=== PATIENT | female | born 1995 | race Caucasian/White ===

== ENCOUNTER 2020-01-06 18:52 | Inpatient (IN) ==
[2020-01-06] MEDS ORDERED: SODIUM CHLORIDE 0.9% 1000ML 1,000 ML IV PRN (20:18)
[2020-01-06] MEDS ORDERED: DEXTROSE 50% 50 ML SYRINGE IV PRN ×2 (20:18→20:30)
[2020-01-06] MEDS ORDERED: OXYTOCIN 30 UNITS/500 ML BAG IV PRN ×2 (20:18)
[2020-01-06] MEDS ORDERED: DEXTROSE 5% 1,000 ML IV PRN (20:18)
--- NOTE | 2020-01-06 20:26 | Labor Progress Brief Note ---
Date of Service January 06, 2020 Subjective Patient presented for placement of palm bulb for planned IOL in AM. She is a 24yo morbidly obese with gestational diabetes on insulin and limited compliance with diabetes care, as well as EFW >98%. She has no complaints on presentation. Assessment & Plan (1) Insulin controlled gestational diabetes mellitus (GDM) during : Hourly FSBG and insulin / glucose protocol initiated. (2) Obesity affecting , antepartum: Patient with EFW >98% and therefore scheduled for IOL tomorrow. Given ROM at this time will admit the patient now, and start pitocin. Physical Exam Physical Exam: T Cat 1 [place] quiet Cvx 1//high/post/soft Palm introduced through the os with some difficulty due to patient intolerance of exam / movement away from examiner and a very posterior cervix. Palm was advanced forward off of stylet such that stylet never passed the internal os. Insufflation of palm bulb proceeded with sterile water. After approx 15cc of water was in palm balloon, a pop sensation was appreciated and clear fluid containing vernix began to pour from the palm. ROM was diagnosed. Results & Data Vital Signs (Past 12 Hours) Vital Signs Temp Pulse Resp BP 01/06/20 19:20 115 H 138/93 01/06/20 19:08 109 H 146/87 H 01/06/20 19:05 98.2 F 108 H 18 146/87 H Coding Level of Care Code None Diagnoses Insulin controlled gestational diabetes mellitus (GDM) during O24.414 Obesity affecting , antepartum O99.210
[2020-01-06] MEDS ORDERED: GLUCOSE 40% GEL 15 GM TUBE PO PRN (20:30)
[2020-01-06] MEDS ORDERED: GLUCOSE 10 TABS/TUBE PO PRN (20:30)
[2020-01-06] MEDS ORDERED: CARBOHYDRATES FOR HYPOGLYCEMIA PO PRN (20:30)
[2020-01-06] MEDS ORDERED: GLUCAGON FOR INJ 1 MG VIAL IM PRN (20:30)
[2020-01-06 20:40] LABS: Hematocrit (blood only) 31.9 % (37-47); Hemoglobin 10.2 g/dL (12.0-16.0); Mean Corpuscular Hemoglobin 25.3 pg (25-34); Mean Corpuscular Volume 79.2 fL (80-100); Nucleated RBC # (auto) 0.02 K/uL (0-0); Nucleated RBC % (auto) 0.2 %; Platelet Count 229 K/uL (130-400); RDW Coefficient of Variation 17.1 % (11.5-14.5); RDW Standard Deviation 48.7 fL (36.4-46.3); Red Blood Count 4.03 M/uL (4.2-5.4); White Blood Count 10.15 K/uL (4.8-10.8)
[2020-01-06] MEDS ORDERED: CALCIUM CARBONATE 500 MG CHEWABLE TAB PO PRN (21:01)
[2020-01-06] MEDS ORDERED: CALCIUM CARBONATE 500 MG CHEWABLE TAB ONE (21:27)
[2020-01-06] MEDS: LACTATED RINGER'S 1,000 ML IV PRN (21:43)
[2020-01-06] MEDS: INSULIN REGULAR 250 UNITS in SODIUM CHLORIDE 0.9% 247.5 ML IV PRN ×2 (22:24→23:02)
[2020-01-07] MEDS: INSULIN REGULAR 250 UNITS in SODIUM CHLORIDE 0.9% 247.5 ML IV PRN ×5 (00:05→05:06)
[2020-01-07] MEDS ORDERED: ePHEDrine sulfate 50 MG/ML AMP ONE (02:37)
[2020-01-07] MEDS ORDERED: fentaNYL citrate 100 MCG/2 ML VIAL ONE (02:38)
[2020-01-07] MEDS ORDERED: BUPIVACAINE 0.25% 30 ML VIAL ONE (02:38)
[2020-01-07] MEDS ORDERED: fentaNYL 2MCG/ML ROPIV 1.25MG/ML 100 ML BAG EPI ONE (02:38)
--- NOTE | 2020-01-07 03:06 | Anesthesiology Consultation ---
Date of Service January 07, 2020 Assessment & Plan Chart Review Chart Review: Acceptable Risk for Labor Epidural Consults Requested none ASA ASA3 Proposed Anesthesia Anesthesia Type: Labor Epidural Risk / Benefits Reviewed With: PT / POA / Parent / Guardian, Accepts Plan and Informed Consent Obtained History Height/Weight Height: 5 ft 3 in Weight: 101.605 kg Allergies Allergy/AdvReac Type Severity Reaction Status Date / Time No Known Allergies Allergy Verified 01/04/20 08:32 Medications Home Medications Medication Instructions Recorded Confirmed Last Taken insulin aspart U-100 62 unit SUBCUT TID 01/06/20 01/06/20 Unknown insulin detemir U-100 [Levemir 62 unit SUBCUT HS 01/06/20 01/06/20 Unknown FlexTouch U-100 Insuln] vit no.[id number] 1 tab PO DAILY 01/06/20 01/06/20 Unknown [ Vitamin] Active Medications Generic Name Dose Route Start Last Admin Trade Name Freq PRN Reason Stop Dose Admin Lactated Ringer's 1,000 mls @ 125 mls/hr 01/06/20 20:18 01/07/20 02:33 Lr IV 01/08/20 20:17 999 mls/hr .Q8H PRN Infusion L&D Protocol Protocol Sodium Chloride 1,000 mls @ 100 mls/hr 01/06/20 20:18 01/07/20 02:09 Nss 1000ml IV 02/05/20 20:17 0 mls/hr .Q10H PRN Infusion BSG 141 mg/dL or above Protocol Insulin Human Regular 250 250 mls @ 0 mls/hr 01/06/20 20:18 01/07/20 02:09 units/ Sodium Chloride IV 02/05/20 20:17 1.5 units/hr Q24H PRN 1.5 mls/hr BSG 80mg/dL or above Administration Protocol Per Protocol Dextrose 1,000 mls @ 100 mls/hr 01/06/20 20:18 01/07/20 02:09 D5w IV 02/05/20 20:17 50 mls/hr .Q10H PRN Infusion BSG 180 or below Protocol Oxytocin 30 units in 500 mls @ 7 mls/hr 01/06/20 20:18 01/06/20 23:45 Pitocin IV 04/28/20 20:17 0.42 units/hr .Q24H PRN 7 mls/hr Labor Induction/Augmentation Titration Protocol 0.42 UNITS/HR NPO Date Last Intake of Fluids: 01/06/20 Time Last Intake of Fluids: 23:59 Date Last Intake of Solids: 01/06/20 Time Last Intake of Solids: 16:00 Past Medical History Medical History Depression Gestational diabetes On insulin LGSIL on Pap smear of cervix Repeat pap smear 6 weeks pp depression After first child; denied needing medication Exercise / Class Metabolic Activity II 4-5 Yardwork/Stairs/Walk up hill Past Family History Family History Other No significant family history Past Surgical History none Past Anesthesia History No Hx of Anesthesia Complications and No Family Hx of Anesthesia Complications History of PONV No Hx of PONV and No Hx of Motion Sickness Social History Smoking Status: Never smoker Do You Dip or Chew Tobacco: No Hx Alcohol Use: No Hx Substance Use: No substance use type: does not use Physical Exam Vital Signs Last Vital Signs Temp 36.8 C 01/07/20 00:58 Pulse 103 H 01/07/20 02:01 Resp 18 01/07/20 00:58 BP 128/63 01/07/20 02:01 Constitutional + obese ENMT Mouth: no TMJ abnormality Thyromental Distance: > or= 3.5 Finger Breadths Mallampati Class: III Neck normal visual inspection and trachea midline; neck extension not limited Respiratory normal respiratory effort Auscultation: lungs clear to auscultation bilaterally Cardiovascular Rate/Rhythm: regular rate and regular rhythm Heart Sounds: no murmur Musculoskeletal Spine: normal cervical ROM Extremities: full ROM of extremities Neurologic moves all extremities Psychiatric Orientation: alert and oriented x 3 Testing Laboratory Results 01/06/20 20:30 01/07/20 01/07/20 01/07/20 02:08 01:01 00:04 POC Glucose 140 H 157 H 121 H 01/06/20 01/06/20 01/06/20 22:59 22:14 21:52 POC Glucose 106 H 81 67 L*
[2020-01-07] MEDS: LACTATED RINGER'S 1,000 ML IV PRN ×2 (03:10→05:08)
[2020-01-07] MEDS ORDERED: NALBUPHINE HCL INJ 10 MG/ML AMP IV PRN (03:33)
[2020-01-07] MEDS ORDERED: METOCLOPRAMIDE HCL 20 MG in SODIUM CHLORIDE 0.9% 50 ML IV PRN (03:33)
[2020-01-07] MEDS ORDERED: ePHEDrine sulfate 50 MG/ML AMP IV PRN (03:33)
[2020-01-07] MEDS ORDERED: NALOXONE HCL 1 MG in SODIUM CHLORIDE 0.9% 1000ML 1,000 ML IV PRN (03:33)
[2020-01-07] MEDS ORDERED: NALOXONE HCL 0.4 MG/1 ML VIAL/CARP IV PRN (03:33)
[2020-01-07] MEDS ORDERED: fentaNYL 2MCG/ML ROPIV 1.25MG/ML 100 ML BAG EPI PRN (03:33)
[2020-01-07] MEDS ORDERED: PROMETHAZINE HCL 25 MG in SODIUM CHLORIDE 0.9% 50 ML IV PRN (03:33)
[2020-01-07] MEDS ORDERED: DiphenhydrAMINE HCL 50 MG/ML VIAL IV PRN (03:33)
[2020-01-07] MEDS ORDERED: ONDANSETRON INJ 2 MG/ML 2 ML VIAL IV PRN (03:33)
[2020-01-07] MEDS ORDERED: TERBUTALINE SULFATE 1 MG/ML VIAL ONE (04:11)
[2020-01-07] MEDS ORDERED: TERBUTALINE SULFATE 1 MG/ML VIAL SQ ONE (04:52)
[2020-01-07 07:55] LABS: Base Excess Cord Arterial Bld -6.2 mEq/L (-9-1.8); CO2 Cord Arterial Blood 80 mmHg (39.1-73.5); HCO3 Cord Arterial Blood 25 mmol/L (19.7-28.5); PO2 Cord Arterial Blood 16 mmHg (4.1-31.7); pH Cord Arterial Blood 7.12 (7.1-7.38)
--- NOTE | 2020-01-07 07:58 | Delivery Summary ---
Vaginal Delivery Summary Date of Service January 07, 2020 Vaginal Delivery Summary DIAGNOSES: 1. Basilio intrauterine at 39w1d gestation. 2. Induction of labor, medically indicated for A2GDM, LGA, Morbid maternal obesity. 3. Group B Streptococcus Neg. PROCEDURE: Spontaneous vaginal delivery with 5+ minute shoulder dystocia and repair of midline episiotomy equal to 2nd degree laceration. SURGEON: Magda Priest MD. TENANT COORDINATOR: Yadira Aggarwal MD. ESTIMATED BLOOD LOSS: 300 mL. COMPLICATIONS: None. PLACENTA: Spontaneous and intact with a 3-vessel cord. DISPOSITION: Stable to labor and delivery. DESCRIPTION: The patient pushed well and brought the head to in DOA position. There was noted to be a lot of soft tissue around the baby's face which had to be manually reduced, and a significantly prolonged phase with "turtle sign." The nursing staff was alerted to concern for a shoulder dystocia and a stool and additional personnel were brought in. Once the head and face were completely free of soft tissue, a definite dystocia was encountered. A tight nuchal cord was also noted. Initial attempt to reduce this cord was unsuccessful. Gentle downward traction on the head was used with a maternal pushing effort to attempt to deliver. This was unsuccessful, however after this attempt it was possible to reduce the nuchal cord which was done. The patient had been placed in Brennen position and suprapubic pressure was being applied to the posterior aspect of the anterior (left) shoulder. Absolutely no fundal pressure was applied. This maneuver was not successful. Maneuvers were tried in succession including Wood's Screw, Ro, attempt to sweep Posterior Arm, attempt to fracture the clavicle, attempt to hook the posterior axilla. None of these maneuvers resulted in any movement. We stopped pushing and I picked up the bandage scissors to make an episiotomy, however decided that this was not likely to be helpful as I was able to place my arm into the posterior aspect of the uterus all the way to the hand without difficulty; the soft tissue was neither the obstruction to delivery nor preventing me from performing maneuvers fully. We therefore returned to the top of the list of maneuvers in order, again without success. We were preparing to move the patient to knee-chest for a Prudence maneuver when Dr. Aggarwal was able to come to the room; he was arriving in the building for a planned this morning on another patient. He quickly gowned and gloved. With the patient still in dorsal lithotomy position he was able to attempt maneuvers in order. When he reached the posterior arm maneuvers he requested an episiotomy which I cut. The posterior arm was then able to be successfully delivered. This resulted in ability to deliver the baby but did still require significant matern al and provider effort to deliver the anterior shoulder, including Brennen and suprapubic pressure again. Then the trunk followed with a strong maternal effort. The right shoulder was anterior. The cord was doubly clamped by the MD and cut, and the infant was taken directly to the warmer for the awaiting team of nurses, bobbin painter, and the anesthesiologist was on his way. The placenta delivered spontaneously and was noted to be intact and with a 3VC. The cervix, vagina and perineum were examined and were found to have only the midline episiotomy which was repaired in the usual manner with vicryl suture. The fundus was firm and lochia minimal immediately after delivery. See pediatric documentation for description of resuscitation efforts, Apgars, weights. Additionally note that cord blood was collected by this physician on the delivery procedure table, and sent promptly for blood gas evaluation.
[2020-01-07 08:02] LABS: Oxygen Sat Cord Arterial Blood < 60.0 % (<60)
[2020-01-07] MEDS ORDERED: IBUPROFEN 600 MG TAB PO ONE (10:02)
[2020-01-07] MEDS ORDERED: BENZOCAINE 20% AER SPR 82.5 GM CAN EXT PRN (10:08)
[2020-01-07] MEDS ORDERED: ACETAMINOPHEN 325 MG TAB PO PRN (10:08)
[2020-01-07] MEDS ORDERED: SUPERCREAM 0.870% 15 GM JAR EXT PRN (10:08)
[2020-01-07] MEDS ORDERED: HYDROCORTISONE ACETATE 25 MG SUPP PR PRN (10:08)
--- NOTE | 2020-01-07 10:25 | Anesthesiology Progress Note ---
Date of Service January 07, 2020 Anesthesia Post Procedure Vital Signs Vital Signs: Temp Pulse Resp BP Pulse Ox 01/07/20 09:55 136 H 134/77 01/07/20 09:40 123 H 138/83 01/07/20 09:25 129 H 141/82 H 01/07/20 09:10 121 H 151/86 H 01/07/20 08:55 120 H 144/84 H 01/07/20 08:40 123 H 137/78 01/07/20 08:25 121 H 145/86 H 01/07/20 08:10 122 H 152/87 H 01/07/20 07:55 123 H 142/78 H 01/07/20 07:47 137 H 153/87 H 01/07/20 07:40 127 H 152/75 H 01/07/20 07:25 151 H 145/91 H 01/07/20 07:14 165 H 95 01/07/20 07:12 179 H 93 01/07/20 07:11 153 H 140/85 01/07/20 07:09 158 H 94 01/07/20 07:06 142 H 94 01/07/20 07:04 131 H 92 01/07/20 07:00 37.4 C 18 01/07/20 06:59 134 H 93 01/07/20 06:55 131/69 01/07/20 06:54 139 H 92 01/07/20 06:49 129 H 93 01/07/20 06:48 140 H 93 01/07/20 06:44 139 H 97 01/07/20 06:42 139 H 92 01/07/20 06:39 136 H 95 01/07/20 06:37 152 H 93 01/07/20 06:34 129 H 95 01/07/20 06:31 159 H 94 01/07/20 06:30 18 01/07/20 06:29 145 H 95 01/07/20 06:25 131 H 143/88 H 90 01/07/20 06:24 145 H 98 01/07/20 06:20 141 H 92 01/07/20 06:19 141 H 94 01/07/20 06:14 129 H 97 01/07/20 06:11 115 H 143/92 H 01/07/20 06:09 118 H 98 01/07/20 06:04 110 H 98 01/07/20 06:03 116 H 135/88 01/07/20 06:00 18 01/07/20 05:59 109 H 97 01/07/20 05:54 110 H 97 01/07/20 05:49 116 H 97 01/07/20 05:44 118 H 98 01/07/20 05:39 112 H 98 01/07/20 05:34 110 H 96 01/07/20 05:30 18 01/07/20 05:29 115 H 96 01/07/20 05:26 111 H 145/88 H 01/07/20 05:24 111 H 96 01/07/20 05:19 112 H 95 01/07/20 05:14 117 H 97 01/07/20 05:11 113 H 145/88 H 01/07/20 05:09 119 H 97 01/07/20 05:04 122 H 95 01/07/20 05:02 36.8 C 01/07/20 05:00 18 01/07/20 04:59 121 H 96 01/07/20 04:57 107 H 146/89 H 01/07/20 04:54 118 H 95 01/07/20 04:49 114 H 95 01/07/20 04:44 114 H 97 01/07/20 04:41 111 H 144/85 H 01/07/20 04:39 118 H 99 01/07/20 04:34 120 H 98 01/07/20 04:30 18 01/07/20 04:29 116 H 97 01/07/20 04:25 120 H 158/86 H 01/07/20 04:24 115 H 98 01/07/20 04:19 103 H 99 01/07/20 04:14 97 H 98 01/07/20 04:10 100 H 152/89 H 01/07/20 04:09 100 H 100 01/07/20 04:05 99 H 143/99 H 01/07/20 04:04 101 H 100 01/07/20 04:00 100 H 18 142/87 H 01/07/20 03:59 101 H 100 01/07/20 03:55 101 H 142/87 H 01/07/20 03:54 108 H 100 01/07/20 03:50 99 H 158/100 H 01/07/20 03:49 101 H 100 01/07/20 03:44 104 H 139/80 100 01/07/20 03:41 98 H 133/74 01/07/20 03:39 99 H 129/70 99 01/07/20 03:38 18 01/07/20 03:37 95 H 130/71 01/07/20 03:35 97 H 139/86 94 01/07/20 03:34 99 H 95 01/07/20 03:31 109 H 152/90 H 01/07/20 03:29 101 H 142/84 H 96 01/07/20 03:27 100 H 94 01/07/20 03:25 107 H 130/78 01/07/20 03:24 108 H 96 01/07/20 03:19 114 H 95 01/07/20 03:14 111 H 96 01/07/20 03:09 111 H 97 01/07/20 03:06 112 H 127/80 01/07/20 03:04 116 H 97 01/07/20 02:01 103 H 128/63 01/07/20 01:03 112 H 117/67 01/07/20 00:58 36.8 C 18 01/07/20 00:02 104 H 129/73 01/06/20 22:57 36.9 C 01/06/20 22:56 112 H 137/83 01/06/20 21:47 104 H 136/78 01/06/20 21:01 36.9 C 01/06/20 19:20 115 H 138/93 01/06/20 19:08 109 H 146/87 H 01/06/20 19:05 36.8 C 108 H 18 146/87 H Pain Intensity Bilateral Abdomen: Pain Intensity: 3 Notes Mental Status: alert / awake / arousable Nausea / Vomiting: adequately controlled Pain: adequately controlled Airway Patency, RR, SpO2: stable & adequate BP & HR: stable & adequate Hydration State: stable & adequate Neuraxial Anesthesia: was administered and sensory block is resolving Anesthetic Complications: no major complications apparent and Pt Satisfied with anesthetic care
[2020-01-07] MEDS: ACETAMINOPHEN W/CODEINE #3 1 TAB PO PRN (17:09)
[2020-01-07] MEDS: IBUPROFEN 600 MG TAB PO PRN ×2 (17:10→23:26)
[2020-01-07] MEDS: DOCUSATE SODIUM 100 MG CAP PO SCH (20:08)
--- NOTE | 2020-01-08 07:36 | Obstetrical Progress Note ---
Date of Service January 08, 2020 Assessment & Plan (1) Insulin controlled gestational diabetes mellitus (GDM) during : - baby transported to [facility] yesterday - patient desires d.c - will hold insulin and check at 6 weeks - d/c instructions given - f/u in 6 weeks Subjective Ambulation: ambulating normally Diet Tolerance:: regular diet Physical Exam Constitutional WD/WN, vitals as above Gastrointestinal (Abdomen) Fundus firm below umbilicus Musculoskeletal No deep calf tenderness Results & Data Vital Signs (Past 12 Hours) Vital Signs Temp Pulse Pulse Resp BP Pulse Ox 01/08/20 03:20 98.1 F 80 16 127/76 98 01/07/20 23:25 98.2 F 98 H 18 134/85 97 01/07/20 19:50 98.1 F 94 H 18 139/75 98
[2020-01-08] MEDS ORDERED: PRENATAL VITAMIN 1 TAB PO SCH (08:00)
[2020-01-08] MEDS: DOCUSATE SODIUM 100 MG CAP PO SCH (08:24)
[2020-01-08] MEDS: IBUPROFEN 600 MG TAB PO PRN (08:26)
[2020-01-08] MEDS: ACETAMINOPHEN W/CODEINE #3 1 TAB PO PRN (08:26)
== END 2020-01-08 13:10 | disposition home or self-care (01) | DRG 807 ==
LOC: OPB 18:52 → 4S1 18:53 → 4S2 01-07 12:56

== ENCOUNTER 2025-05-19 03:30 | Observation (INO) ==
[2025-05-19] MEDS: ONDANSETRON INJ 2 MG/ML 2 ML VIAL IV STA (03:51)
[2025-05-19] MEDS: SODIUM CHLORIDE 0.9% 1,000 ML IV ONE (03:51)
[2025-05-19] MEDS: KETOROLAC 30 MG/ML VIAL IV STA (03:53)
[2025-05-19 03:54] LABS: Appearance Urine Clear (Clear); Glucose Urine UA Negative (Negative)
[2025-05-19 03:58] LABS: Hematocrit (blood only) 34.6 % (37.0-47.0); Hemoglobin 10.9 g/dl (12.0-16.0); Immature Granulocytes # (auto) 0.05 K/uL (0.01-0.20); Immature Granulocytes % (auto) 0.5 %; Mean Corpuscular Hemoglobin 25.3 pg (25.0-34.0); Mean Corpuscular Volume 80.3 fL (80.0-100.0); Platelet Count 296 K/uL (130-400); RDW Standard Deviation 64.1 fL (36.4-46.3); Red Blood Count 4.31 M/uL (4.20-5.40); White Blood Count 9.53 K/ul (4.8-10.8)
[2025-05-19 04:14] LABS: Alanine Aminotransferase 95.0 U/L (7-52); Albumin Globulin Ratio 1.4 (0.9-2); Alkaline Phosphatase 87.0 U/L (34-104); Anion Gap 4.0 (3-11); Bilirubin,Total 0.3 mg/dl (0.2-1.0); Blood Urea Nitrogen 13.0 mg/dl (6-23); Calcium 8.8 mg/dl (8.6-10.3); Carbon Dioxide 29.0 mmol/L (21-32); Chloride 106.0 mmol/L (98-107); Creatinine Clr Calc Pharmacy 139.2 ml/min; Globulin 2.9 gm/dl (2.5-4.0); Glucose 162.0 mg/dl (70-99(Fasting)); Lipase 44.0 U/L (11-82); Potassium 4.2 mmol/L (3.5-5.1); Sodium 139.0 mmol/L (136-145); Total Protein 6.9 gm/dl (6.0-8.3)
[2025-05-19 04:16] LABS: Anisocytosis Present; Polychromasia 1+
[2025-05-19 04:17] LABS: Pregnancy Test, Serum Negative (Negative)
--- NOTE | 2025-05-19 04:52 | CT Scan Report ---
EXAM: CT abd pelvis wo con CLINICAL HISTORY: right flank pain TECHNIQUE: Contiguous axial images were obtained from the level of the diaphragm to the pubic symphysis without intravenous or oral contrast. Coronal and sagittal reconstructions were likewise performed and indicated to increase the sensitivity for detecting clinically relevant pathology. CT scan was performed according to ALARA (as low as reasonable achievable). COMPARISON: None FINDINGS: The visualized lung bases are clear. Evaluation of the abdominal and pelvic visceral organs is limited without intravenous contrast. The unenhanced spleen, pancreas, and adrenal glands are grossly unremarkable. Liver is enlarged in size measuring approximately 21 cm in midclavicular line with diffusely decreased attenuation The gallbladder is well distended with dependent faint radiodensity within. The kidneys are normal in size and attenuation without obvious calcification. There is no hydronephrosis or perinephric stranding. The ureters are normal in caliber. No adenopathy or fluid collections are seen. Moderate fecal content is seen in large bowel loops. No evidence of focal or diffuse bowel wall thickening or evidence of bowel obstruction is seen. The appendix is visualized in the right lower quadrant and appears within normal limits. The aorta is normal in caliber. The urinary bladder is undistended. Uterus is bulky-advised ultrasound correlation. No aggressive appearing osseous lesions are identified. IMPRESSION: Uncomplicated cholelithiasis. Hepatomegaly with diffuse hepatic steatosis. Uterus is bulky-advised ultrasound correlation. No acute intra-abdominal abnormality detected. Electronically signed by Harjinder Oswald 05-19-2025 04:52 AM
--- NOTE | 2025-05-19 06:29 | Emergency Department Note ---
History of Present Illness General Chief complaint: Abdominal Pain Stated complaint: Lower Abdominal Pain, Dizziness Time Seen by Provider: 05/19/25 03:32 History of Present Illness Maximum Pain Intensity: 10 This is a 30-year-old female presenting to the emergency department for evaluation of right sided abdominal pain. The patient essentially awoke with pain around 2:30 AM. She does have a history of kidney stones, but this is not identical to those. She has not had fevers or chills. She is without nausea or vomiting. Patient arrives via EMS and did not receive anything prehospital for symptoms. She did have tubal ligation performed with a few months ago. She rates her overall discomfort a 06/21. Home Medications Medication Instructions Recorded Confirmed Type PNV no.[id number] PO 10/24/24 11/29/24 History [ Gummies] escitalopram oxalate [Lexapro] PO 10/24/24 11/29/24 History lamotrigine PO 10/24/24 11/29/24 History quetiapine [Seroquel] PO 10/24/24 11/29/24 History blood-glucose sensor (FreeStyle #2 ea 10/26/24 11/29/24 Rx Ace 3 Plus Sensor device) insulin NPH isoph U-100 human 100 10 unit (0.1 mL) subcut .at bed 10/26/24 11/29/24 Rx unit/mL (3 mL) subcutaneous pen time #15 mL (Novolin N FlexPen) insulin aspart U-100 100 unit/mL 5 unit (0.05 mL) subcut TID #15 mL 10/26/24 11/29/24 Rx (3 mL) subcutaneous pen (Novolog FlexPen U-100 Insulin aspart) pen needle, diabetic 32 gauge x #150 ea 10/26/24 11/29/24 Rx 5/32" (BD Ultra-Fine Chrystal Pen Needle) ondansetron HCl 4 mg tablet 4 mg PO Q8H PRN nausea and 10/31/24 11/29/24 Rx vomiting #20 tabs Allergies Allergy/AdvReac Type Severity Reaction Status Date / Time No Known Allergies Allergy Verified 11/29/24 10:39 Past Med/Surg History Problem List (Updated 05/19/25 @ 07:14 by Jeremi Booker PA-C) Acute cholecystitis (Acute) Gallstones (Acute) Abdominal pain (Acute) Encounter for anatomic survey Early stage of Diabetes mellitus affecting , antepartum Encounter for supervision of normal in multigravida Medical History Insulin controlled gestational diabetes mellitus (GDM) during LGSIL on Pap smear of cervix High 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 Depression LGSIL on Pap smear of cervix Repeat pap smear 6 weeks pp depression After first child; denied needing medication Gestational diabetes On insulin Depression Surgical History Status post surgery labiaplasty [place] teeth extracted Family History Other Adopted Social History Smoking Status: Current every day smoker Tobacco Type: Cigarettes Second Hand Exposure: No; Do You Dip or Chew Tobacco: No; Hx Alcohol Use: No Hx Substance Use: No Preferred Language: Malagasy Communication Ability: Effective Librarian Head Required: No Beliefs That Will Affect Care: None marital status: marital status details: Roque Ibrahim (29) [phone] Current Living Situation: Spouse and Family Current Living Situation Comment: Lives with , children,dog, cat-fob changing litter current occupational status: unemployed current occupation: homemaker Feels Safe at Home: Yes Assistive Devices: None Review of Systems A total of 10 systems reviewed and were otherwise negative Physical Exam Vital Signs Vital Signs - 24 hr 05/19/25 03:36 05/19/25 03:37 05/19/25 04:00 Temperature 36.9 C Temperature Source Oral Pulse Rate 85 86 83 Pulse Rate from SpO2 Sensor 84 Pulse Rhythm Regular Pulse Strength Normal Respiratory Rate 18 18 Respiratory Effort / Characteristics Non-Labored Spontaneous Respiratory Depth Normal Respiratory Pattern Regular Blood Pressure 130/81 127/76 Blood Pressure Mean 97 90 Blood Pressure Position Lying Pulse Oximetry 99 96 Oxygen Delivery Method Room Air Room Air Sepsis Recent Fever Within 48 Hours No Sepsis New/Unexplained Change in Mental Status N/A Sepsis Action Taken by Nursing No Action Required 05/19/25 04:15 05/19/25 04:30 05/19/25 05:27 Temperature Temperature Source Pulse Rate 84 83 74 Pulse Rate from SpO2 Sensor 84 85 76 Pulse Rhythm Pulse Strength Respiratory Rate 18 22 Respiratory Effort / Characteristics Respiratory Depth Respiratory Pattern Blood Pressure 124/76 119/72 150/86 H Blood Pressure Mean 92 87 107 Blood Pressure Position Pulse Oximetry 96 95 96 Oxygen Delivery Method Room Air Room Air Room Air Sepsis Recent Fever Within 48 Hours Sepsis New/Unexplained Change in Mental Status Sepsis Action Taken by Nursing 05/19/25 05:33 05/19/25 05:42 05/19/25 05:51 Temperature Temperature Source Pulse Rate 68 72 80 Pulse Rate from SpO2 Sensor 69 75 81 Pulse Rhythm Pulse Strength Respiratory Rate Respiratory Effort / Characteristics Respiratory Depth Respiratory Pattern Blood Pressure 140/80 Blood Pressure Mean 100 Blood Pressure Position Pulse Oximetry 94 94 96 Oxygen Delivery Method Room Air Room Air Room Air Sepsis Recent Fever Within 48 Hours Sepsis New/Unexplained Change in Mental Status Sepsis Action Taken by Nursing 05/19/25 06:00 05/19/25 06:30 Temperature Temperature Source Pulse Rate 75 73 Pulse Rate from SpO2 Sensor 73 68 Pulse Rhythm Pulse Strength Respiratory Rate 15 18 Respiratory Effort / Characteristics Respiratory Depth Respiratory Pattern Blood Pressure 153/90 H 151/87 H Blood Pressure Mean 111 108 Blood Pressure Position Pulse Oximetry 93 95 Oxygen Delivery Method Room Air Room Air Sepsis Recent Fever Within 48 Hours Sepsis New/Unexplained Change in Mental Status Sepsis Action Taken by Nursing VITALS: Vitals are noted on the nurse's note and reviewed by myself. Vital signs stable. GENERAL: Well-developed, well-nourished, white female, who is in no acute distress and resting comfortably. Patient is cooperative with the examination. HEAD: Normocephalic atraumatic. NECK: Supple without nuchal rigidity. No lymphadenopathy. No thyromegaly. Cervical spine is nontender. HEART: Regular rate and rhythm without murmurs gallops or rubs. LUNGS: Clear to auscultation bilaterally without wheezes, rales or rhonchi. No retractions or accessory muscle use. ABDOMEN: Positive normal bowel sounds x 4. Soft, with right sided and periumbilical tenderness on palpation. No CVA tenderness. MUSCULOSKELETAL: No muscle atrophy, erythema, or edema noted. Full range of motion in all extremities. Course Administered Medications Discontinued Medications Sodium Chloride (Nss) 1,000 mls @ 999 mls/hr IV .Q1H1M ONE Stop: 05/19/25 04:37 Last Infusion: 05/19/25 04:55 Dose: Infused Documented By: Admin: 05/19/25 03:51 Dose: 999 mls/hr Documented By: BEAU Ketorolac Tromethamine (Ketorolac 30 Mg/Ml Vial) 30 mg IV NOW STA Stop: 05/19/25 03:38 Last Admin: 05/19/25 03:53 Dose: 30 mg Documented By: BEAU Ondansetron HCl (Ondansetron Inj 2 Mg/Ml 2 Ml Vial) 4 mg IV NOW STA Stop: 05/19/25 03:38 Last Admin: 05/19/25 03:51 Dose: 4 mg Documented By: BEAU Medical Decision Making Differential Diagnosis differential diagnosis: Etiologies such as biliary colic, cholecystitis, hepatitis, pancreatitis, cardiac disease, pancreatitis, gastritis, peptic ulcer disease, appendicitis, cystitis, diverticulitis, mesenteric ischemia, inflammatory bowel disease, ileus, bowel obstruction, testicular/adnexal torsion, aortic pathology, shingles, as well as others were considered Laboratory Data 05/19/25 03:41 05/19/25 03:41 Lab Results 05/19/25 Range/Units 03:41 WBC 9.53 (4.8-10.8) K/ul RBC 4.31 (4.20-5.40) M/uL Hgb 10.9 L (12.0-16.0) g/dl Hct 34.6 L (37.0-47.0) % MCV 80.3 (80.0-100.0) fL MCH 25.3 (25.0-34.0) pg MCHC 31.5 L (32.0-36.0) g/dL RDW Std Deviation 64.1 H (36.4-46.3) fL RDW Coeff of Herbert 22.5 H (11.5-14.5) % Plt Count 296 (130-400) K/uL MPV 9.4 (9.4-12.4) fL Immature Gran % (Auto) 0.5 % Neut % (Auto) 64.9 % Lymph % (Auto) 26.7 % Candler % (Auto) 5.7 % Eos % (Auto) 1.8 % Baso % (Auto) 0.4 % Neut # (Auto) 6.19 (1.40-6.50) K/uL Lymph # (Auto) 2.54 (1.20-3.40) K/uL Candler # (Auto) 0.54 (0.11-0.59) K/uL Eos # (Auto) 0.17 (0.00-0.50) K/uL Baso # (Auto) 0.04 (0.00-0.20) K/uL Immature Gran # (Auto) 0.05 (0.01-0.20) K/uL Polychromasia 1+ Anisocytosis Present Sodium 139 (136-145) mmol/L Potassium 4.2 (3.5-5.1) mmol/L Chloride 106 (98-107) mmol/L Carbon Dioxide 29 (21-32) mmol/L Anion Gap 4 (3-11) BUN 13 (6-23) mg/dl Creatinine 0.62 (0.6-1.2) mg/dl Est Cr Clr Drug Dosing 139.2 ml/min eGFR 124.32 BUN/Creatinine Ratio 21.0 H (10-20) Glucose 162 H (70-99(Fasting)) mg/dl Calcium 8.8 (8.6-10.3) mg/dl Total Bilirubin 0.3 (0.2-1.0) mg/dl AST 126 H (13-39) U/L ALT 95 H (7-52) U/L Alkaline Phosphatase 87 (34-104) U/L Total Protein 6.9 (6.0-8.3) gm/dl Albumin 4.0 (3.4-5.0) gm/dl Globulin 2.9 (2.5-4.0) gm/dl Albumin/Globulin Ratio 1.4 (0.9-2) Lipase 44 (11-82) U/L HCG, Qual Negative (Negative) Urine Color Yellow Urine Appearance Clear (Clear) Urine pH 6.0 (4.5-7.5) Ur Specific [place] 1.028 (1.000-1.030) Urine Protein Negative (Negative) Urine Glucose (UA) Negative (Negative) Urine Ketones Trace H (Negative) Urine Blood Negative (Negative) Urine Nitrite Negative (Negative) Urine Bilirubin Negative (Negative) Urine Urobilinogen Negative (Negative) Ur Leukocyte Esterase Negative (Negative) Urine Comment Imaging Data Radiologist's Impression: Abdomen/Pelvis CT 05/19/25 03:37 EXAM: CT abd pelvis wo con CLINICAL HISTORY: right flank pain TECHNIQUE: Contiguous axial images were obtained from the level of the diaphragm to the pubic symphysis without intravenous or oral contrast. Coronal and sagittal reconstructions were likewise performed and indicated to increase the sensitivity for detecting clinically relevant pathology. CT scan was performed according to ALARA (as low as reasonable achievable). COMPARISON: None FINDINGS: The visualized lung bases are clear. Evaluation of the abdominal and pelvic visceral organs is limited without intravenous contrast. The unenhanced spleen, pancreas, and adrenal glands are grossly unremarkable. Liver is enlarged in size measuring approximately 21 cm in midclavicular line with diffusely decreased attenuation The gallbladder is well distended with dependent faint radiodensity within. The kidneys are normal in size and attenuation without obvious calcification. There is no hydronephrosis or perinephric stranding. The ureters are normal in caliber. No adenopathy or fluid collections are seen. Moderate fecal content is seen in large bowel loops. No evidence of focal or diffuse bowel wall thickening or evidence of bowel obstruction is seen. The appendix is visualized in the right lower quadrant and appears within normal limits. The aorta is normal in caliber. The urinary bladder is undistended. Uterus is bulky-advised ultrasound correlation. No aggressive appearing osseous lesions are identified. IMPRESSION: Uncomplicated cholelithiasis. Hepatomegaly with diffuse hepatic steatosis. Uterus is bulky-advised ultrasound correlation. No acute intra-abdominal abnormality detected. Electronically signed by Harjinder Oswald 05-19-2025 04:52 AM Gallbladder Ultrasound 05/19/25 04:17 EXAM: US gallbladder CLINICAL HISTORY: Abd pain, elevated lfts TECHNIQUE: Limited ultrasound of the liver and gallbladder was performed in greyscale and Doppler. Multiple images were obtained in transverse and longitudinal planes. COMPARISON: [id number].[id number].[id number] previous CT abdomen /OBX.5.1.1OBX.5.1.2 pelvis without contrast dated 05/19/2025 was reviewed, the current study revealed:/OBX.5.1.2/OBX.5.1 FINDINGS: Liver: OBX.5.1OBX.5.1.1 Liver size: Is enlarged in size, measuring about 23.2cm in MCL /OBX.5.1.1OBX.5.1.2 slightly hyperechoic homogeneous echotexture./OBX.5.1.2/OBX.5.1 No evidence of focal lesions, cysts, or masses. Hepatic vasculature appears normal. Gallbladder: Gallbladder size: Appears distended, measuring about 14.5cm in length, about 4.5cm in diameter with normal wall thickness measuring about 2mm. OBX.5.1OBX.5.1.1Shows mobile sludge /OBX.5.1.1OBX.5.1.2 multiple small shadowing stones with positive Mcmillan's sign./OBX.5.1.2/OBX.5.1 Biliary Tree: Common bile duct diameter: Dilated, measuring about 8mm. Pancreas: Visualized head and proximal body appear enlarged and echogenic, correlation with clinical data, serum amylase and lipase and if needed CECT study of abdomen and pelvis advised Right kidney: OBX.5.1OBX.5.1.1 Average size /OBX.5.1.1OBX.5.1.2 measures about 12.4cm in length with no back pressure changes, no stones or focal lesions noted./OBX.5.1.2/OBX.5.1 IMPRESSION: 1. The gall bladder appears distended with mobile calculi and sludge and reported positive Mcmillan sign, these criteria raise the concern for acute calcular cholecystitis, clinical and lab correlation needed 2. Visualized head and proximal body appear enlarged and echogenic, correlation with clinical data, serum amylase and lipase and if needed CECT study of abdomen and pelvis advised 3. Dilated common bile duct, correlation with serum bilirubin advised, MRCP study advised if clinically needed 4. Hepatomegaly and mild steatosis Electronically signed by Aryan Rodríguez 05-19-2025 07:01 AM MDM Narrative Physical exam and history were performed. Nursing notes, EMR, and Medication List were personally reviewed. No social concerns were identified as barriers to patients care. History was provided by the Patient and EMS. Patient appears to have abdominal pain bringing her to the ER. IV access was established and labs were obtained. She was hydrated with normal saline and given IV Toradol and IV Zofran. Patient was sent to CT scan for imaging of her abdomen and pelvis. Patient's blood work is as above and was reviewed. She does not have a significant elevated white blood cell count, gross anemia, bandemia, or significant electrolyte imbalance. She is not . Transaminases not diagnostic. CT scan was performed and independently reviewed by myself and radiology. It does not reveal kidney stone, but does show an enlarged gallbladder with questionable stone. Because of this she was sent to ultrasound which was also reviewed by myself and radiology. Ultrasound appears to show acute cholecystitis, which would correlate with the patient's symptoms. Escalation of care is felt to be necessary and case was discussed with the on- call surgical team. Patient was given IV Zosyn here in the ER. Please see the surgical team dictation for further patient course, plan, disposition. The chart was completed utilizing [employer] Voice Recognition Software. Grammatical errors, random word insertions, pronoun errors, and incomplete sentences are an occasional consequence of this system due to software limitations, ambient noise, and hardware issues. Any formal questions or concerns about the content, text, or information contained within the body of this dictation should be directly addressed to the provider for clarification. Impression & Plan Acute cholecystitis, Abdominal pain, Gallstones Discharge Plan Visit Data Chief Complaint: Abdominal Pain Stated Complaint: Lower Abdominal Pain, Dizziness ED Provider: Stuart Whyte ED Midlevel Provider: Jeremi Booker Discharge Problem: Acute cholecystitis, Abdominal pain, Gallstones Patient Disposition: Being Evaluated by Surgeon Condition: Fair Forms Stand Alone Forms: [email or web address] Prescriptions Prescriptions: No Action ondansetron HCl 4 mg tablet 4 mg PO Q8H PRN (Reason: nausea and vomiting) Qty: 20 1RF PNV no.[id number] [ Gummies] PO lamotrigine PO escitalopram oxalate [Lexapro] PO quetiapine [Seroquel] PO (DME) FreeStyle Ace 3 Plus Sensor Device See Rx Instructions .Route Qty: 2 8RF Rx Instructions: As directed to change sensor every 15 days insulin aspart U-100 [Novolog FlexPen U-100 Insulin] 100 unit/mL (3 mL) insulin pen 5 unit subcut TID Qty: 15 2RF Rx Instructions: Inject 5 units with each meal, three times a day; increase as needed; TDD up to 40 units a day. Novolin N FlexPen 100 unit/mL (3 mL) insulin pen 10 unit subcut .at bed time Qty: 15 5RF Rx Instructions: Inject 10 units at bed time; increase as needed; TDD up to 40 units (DME) pen needle, diabetic [BD Ultra-Fine Chrystal Pen Needle] 32 gauge x 5/32" needle See Rx Instructions miscellaneous .[facility] Qty: 150 8RF Rx Instructions: As directed to use with insulin pens 4 times a day Referrals Referrals: Karina Kincaid PA-C [Primary Care Provider] -
--- NOTE | 2025-05-19 07:01 | Ultrasound Report ---
EXAM: US gallbladder CLINICAL HISTORY: Abd pain, elevated lfts TECHNIQUE: Limited ultrasound of the liver and gallbladder was performed in greyscale and Doppler. Multiple images were obtained in transverse and longitudinal planes. COMPARISON: OBX.5.1OBX.5.1.1The previous CT abdomen /OBX.5.1.1OBX.5.1.2 pelvis without contrast dated 05/19/2025 was reviewed, the current study revealed:/OBX.5.1.2/OBX.5.1 FINDINGS: Liver: OBX.5.1OBX.5.1.1 Liver size: Is enlarged in size, measuring about 23.2cm in MCL /OBX.5.1.1OBX.5.1.2 slightly hyperechoic homogeneous echotexture./OBX.5.1.2/OBX.5.1 No evidence of focal lesions, cysts, or masses. Hepatic vasculature appears normal. Gallbladder: Gallbladder size: Appears distended, measuring about 14.5cm in length, about 4.5cm in diameter with normal wall thickness measuring about 2mm. OBX.5.1OBX.5.1.1Shows mobile sludge /OBX.5.1.1OBX.5.1.2 multiple small shadowing stones with positive Mcmillan's sign./OBX.5.1.2/OBX.5.1 Biliary Tree: Common bile duct diameter: Dilated, measuring about 8mm. Pancreas: Visualized head and proximal body appear enlarged and echogenic, correlation with clinical data, serum amylase and lipase and if needed CECT study of abdomen and pelvis advised Right kidney: OBX.5.1OBX.5.1.1 Average size /OBX.5.1.1OBX.5.1.2 measures about 12.4cm in length with no back pressure changes, no stones or focal lesions noted./OBX.5.1.2/OBX.5.1 IMPRESSION: 1. The gall bladder appears distended with mobile calculi and sludge and reported positive Mcmillan sign, these criteria raise the concern for acute calcular cholecystitis, clinical and lab correlation needed 2. Visualized head and proximal body appear enlarged and echogenic, correlation with clinical data, serum amylase and lipase and if needed CECT study of abdomen and pelvis advised 3. Dilated common bile duct, correlation with serum bilirubin advised, MRCP study advised if clinically needed 4. Hepatomegaly and mild steatosis Electronically signed by Aryan Rodríguez 05-19-2025 07:01 AM
[2025-05-19] MEDS: PIPERACILLIN/TAZOBACTAM 4.5 GM/100 ML BAG IV ONE (07:30)
--- NOTE | 2025-05-19 08:22 | History & Physical Report ---
Date of Service May 19, 2025 Assessment & Plan (1) Acute cholecystitis: Plan: Her CT and ultrasound images and results were personally viewed and interpreted by myself She does have a dilated and distended gallbladder with gallstones and some Foster cholecystic infiltration consistent with cholecystitis Her liver enzymes are normal however her common bile duct is slightly dilated at 8 mm I think since she has acute cholecystitis, we can proceed with a laparoscopic cholecystectomy, possible open, possible intraoperative cholangiogram Consent was obtained, risks discussed including bleeding, infection, bile leak, ductal injury, retained stone Will admit the patient to our service after surgery and repeat her labs in the morning (2) Gallstones: History of Present Illness Primary Care Provider: Karina Kincaid This is a 30-year-old female who presented to the ER with right upper quadrant sharp pain that started around 230 this morning. She has not eaten or drank anything since 10 PM. She has never had this type of pain in the past. Denies any fevers or chills. She had some nausea without emesis. Only abdominal surgery is a and tubal ligation. Denies any scleral icterus, jaundice, tea colored urine or acholic stools. Allergies Allergy/AdvReac Type Severity Reaction Status Date / Time No Known Allergies Allergy Verified 11/29/24 10:39 Home Medications Medication Instructions Recorded Confirmed Type [facility] [id number] PO 10/24/24 11/29/24 History [ Gummies] escitalopram oxalate [Lexapro] PO 10/24/24 11/29/24 History lamotrigine PO 10/24/24 11/29/24 History quetiapine [Seroquel] PO 10/24/24 11/29/24 History blood-glucose sensor (FreeStyle #2 ea 10/26/24 11/29/24 Rx Ace 3 Plus Sensor device) insulin NPH isoph U-100 human 100 10 unit (0.1 mL) subcut .at bed 10/26/24 11/29/24 Rx unit/mL (3 mL) subcutaneous pen time #15 mL (Novolin N FlexPen) insulin aspart U-100 100 unit/mL 5 unit (0.05 mL) subcut TID #15 mL 10/26/24 11/29/24 Rx (3 mL) subcutaneous pen (Novolog FlexPen U-100 Insulin aspart) pen needle, diabetic 32 gauge x #150 ea 10/26/24 11/29/24 Rx 32" (BD Ultra-Fine Chrystal Pen Needle) ondansetron HCl 4 mg tablet 4 mg PO Q8H PRN nausea and 10/31/24 11/29/24 Rx vomiting #20 tabs Past Med/Surg History Problem List Acute cholecystitis (Acute) Gallstones (Acute) Abdominal pain (Acute) Encounter for anatomic survey Early stage of Diabetes mellitus affecting , antepartum Encounter for supervision of normal in multigravida Medical History Insulin controlled gestational diabetes mellitus (GDM) during LGSIL on Pap smear of cervix High 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 Depression LGSIL on Pap smear of cervix Repeat pap smear 6 weeks pp depression After first child; denied needing medication Gestational diabetes On insulin Depression Surgical History Status post surgery labiaplasty [place] teeth extracted Family History Other Adopted Social History Smoking Status: Current every day smoker Tobacco Type: Cigarettes Second Hand Exposure: No; Do You Dip or Chew Tobacco: No; Hx Alcohol Use: No Hx Substance Use: No Preferred Language: Vietnamese Communication Ability: Effective Charrer Required: No Beliefs That Will Affect Care: None marital status: marital status details: Roque Ibrahim (29) [phone] Current Living Situation: Spouse and Family Current Living Situation Comment: Lives with , children,dog, cat-fob changing litter current occupational status: unemployed current occupation: homemaker Feels Safe at Home: Yes Assistive Devices: None Review of Systems Constitutional: no fever and no chills Eyes: no blind spots and no corrective lenses Ear, Nose, Mouth, Throat: no ear pain and no hearing loss Respiratory: no cough and no dyspnea Cardiovascular: no chest pain and no dyspnea on exertion Gastrointestinal: + abdominal pain and + nausea; no vomiti ng and no constipation Genitourinary: no dysuria and no nocturia Musculoskeletal: no back pain and no neck pain Integumentary: no acne and no erythema Neurologic: no gait abnormality and no unsteadiness Psychiatric: no behavioral changes and no depression Hematologic / Lymphatic: no easy bleeding and no easy bruising Physical Exam Constitutional: WD/WN, vitals as above Eyes: PERRL, conjunctivae normal, anicteric sclerae ENMT: external ear and nose normal, oropharynx normal Neck: trachea midline, no thyromegaly Respiratory: normal respiratory effort, lungs clear to auscultation Cardiovascular: RRR, no murmur, no edema Gastrointestinal (Abdomen): Inspection/Auscultation: abdomen normal to inspection; abdomen not distended Percussion/Palpation: + abdomen tender (Right upper quadrant), + guarding and abdomen soft Positive Mcmillan's Musculoskeletal: no cyanosis or clubbing, extremities motor strength 5/5 Skin: no rashes, warm and dry Neurologic: PERRL, EOMI, accommodation nl, no face palsy, no dysarthria Psychiatric: A+Ox3, euthymic affect Results & Data Results & Data Vital Signs (Past 12 Hours) Vital Signs Temp Pulse Resp BP Pulse Ox O2 Del Method 05/19/25 07:42 64 15 05/19/25 07:36 76 13 05/19/25 07:00 164/90 H 05/19/25 07:00 73 13 98 05/19/25 06:45 83 17 95 05/19/25 06:30 73 18 151/87 H 95 Room Air 05/19/25 06:00 75 15 153/90 H 93 Room Air 05/19/25 05:51 80 96 Room Air 05/19/25 05:42 72 94 Room Air 05/19/25 05:33 68 140/80 94 Room Air 05/19/25 05:27 74 150/86 H 96 Room Air 05/19/25 04:30 83 22 119/72 95 Room Air 05/19/25 04:15 84 18 124/76 96 Room Air 05/19/25 04:00 83 18 127/76 96 Room Air 05/19/25 03:37 86 05/19/25 03:36 36.9 C 85 18 130/81 99 Room Air PG Care Time/CCT Total # of Minutes Spent Total Time Spent with Patient: Total time spent is greater than 50% in coordination of care (as documented) at patient's floor/unit and/or counseling patient: Coding Level of Care Code 67434 INT INP/OBS CARE MIN Diagnoses Acute cholecystitis K81.0 Gallstones K80.20
--- NOTE | 2025-05-19 08:42 | Anesthesiology Consultation ---
Date of Service May 19, 2025 Assessment & Plan Chart Review Chart Review: Acceptable Risk for Surgery and Patient NOT seen in Pre Admission Testing Consults Requested none ASA [id number] Proposed Anesthesia Anesthesia Type: General History Surgery Operation Date: 05/19/25 10:00 Proposed Procedures p Laparoscopic Cholecystectomy - Hong Goodman DO Height/Weight Height: 5 ft 3 in Weight: 84.6 kg Allergies Allergy/AdvReac Type Severity Reaction Status Date / Time No Known Allergies Allergy Verified 05/19/25 08:26 Medications Home Medications Medication Instructions Recorded Confirmed Last Taken blood-glucose sensor (FreeStyle #2 ea 10/26/24 11/29/24 Unknown Ace 3 Plus Sensor device) pen needle, diabetic 32 gauge x #150 ea 10/26/24 11/29/24 Unknown " (BD Ultra-Fine Chrystal Pen Needle) dextroamphetamine-amphetamine ER 30 mg PO QAM 05/19/25 05/19/25 05/18/25 30 mg 24hr capsule,extend release (Adderall XR) escitalopram oxalate 20 mg tablet 20 mg PO HS 05/19/25 05/19/25 05/18/25 (Lexapro) lamotrigine 100 mg tablet 100 mg PO HS 05/19/25 05/19/25 05/18/25 Past Medical History Medical History Insulin controlled gestational diabetes mellitus (GDM) during LGSIL on Pap smear of cervix High 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 Depression LGSIL on Pap smear of cervix Repeat pap smear 6 weeks pp depression After first child; denied needing medication Gestational diabetes On insulin Depression hypertriglyceridemia obese + tobacco smoker HTN Anemia Exercise / Class Metabolic Activity II 4-5 Yardwork/Stairs/Walk up hill Past Family History Family History Other Adopted Past Surgical History Surgical History Status post surgery labiaplasty [place] teeth extracted Past Anesthesia History No Hx of Anesthesia Complications and No Family Hx of Anesthesia Complications History of PONV No Hx of PONV and No Hx of Motion Sickness Social History Smoking Status: Current every day smoker Do You Dip or Chew Tobacco: No Hx Alcohol Use: No Hx Substance Use: No substance use type: does not use Physical Exam Vital Signs Last Vital Signs Temp 36.9 C 05/19/25 03:36 Pulse 64 05/19/25 07:42 Resp 15 05/19/25 07:42 BP 164/90 H 05/19/25 07:00 Pulse Ox 98 05/19/25 07:00 O2 Del Method Room Air 05/19/25 06:30 Testing Laboratory Results 05/19/25 03:41 05/19/25 03:41 Urine Color Yellow 05/19/25 03:41 Urine Appearance Clear (Clear) 05/19/25 03:41 Urine pH 6.0 (4.5-7.5) 05/19/25 03:41 Ur Specific Roy 1.028 (1.000-1.030) 05/19/25 03:41 Urine Protein Negative (Negative) 05/19/25 03:41 Urine Glucose (UA) Negative (Negative) 05/19/25 03:41 Urine Ketones Trace (Negative) H 05/19/25 03:41 Urine Nitrite Negative (Negative) 05/19/25 03:41 Ur Leukocyte Esterase Negative (Negative) 05/19/25 03:41 Electrocardiogram Date: 11/26/19 Findings: + ST @ (@ 120)
[2025-05-19] MEDS ORDERED: PROMETHAZINE HCL 6.25 MG in SODIUM CHLORIDE 0.9% 50 ML IV PRN (08:45)
[2025-05-19] MEDS ORDERED: NALOXONE HCL 0.4 MG/1 ML VIAL/CARP IV PRN (08:45)
[2025-05-19] MEDS ORDERED: ONDANSETRON INJ 2 MG/ML 2 ML VIAL IV PRN ×2 (08:45→10:41)
[2025-05-19] MEDS ORDERED: HYDROmorphone INJ 1 MG/ML SYRINGE IV PRN (08:45)
[2025-05-19] MEDS ORDERED: FLUMAZENIL 0.1 MG/1 ML 10 ML VIAL IV PRN (08:45)
[2025-05-19] MEDS ORDERED: ATROPINE SULFATE 0.1 MG/ML 10ML SYR IV PRN (08:45)
[2025-05-19] MEDS ORDERED: PROPOFOL IV EMULSION 10 MG/ML 20 ML VIAL IV ONE (08:53)
[2025-05-19] MEDS ORDERED: MIDAZOLAM HCL 1 MG/ML 2ML VIAL ONE (08:53)
[2025-05-19] MEDS ORDERED: ROCURONIUM BROMIDE 10 MG/ML 5 ML VIAL IV ONE (08:54)
[2025-05-19] MEDS ORDERED: ONDANSETRON INJ 2 MG/ML 2 ML VIAL ONE (08:55)
[2025-05-19] MEDS ORDERED: DEXAMETHASONE SOD INJ 4 MG/ML VIAL ONE (08:55)
[2025-05-19] MEDS ORDERED: NEOSTIGMINE METHYLSULFATE 1 MG/ML 10ML VIAL ONE (08:56)
[2025-05-19] MEDS ORDERED: GLYCOPYRROLATE 0.2 MG/ML VIAL ONE (08:56)
[2025-05-19] MEDS ORDERED: KETAMINE HCL 10MG/ML SYR ONE (09:43)
[2025-05-19] MEDS: BUPIVACAINE/EPINEPHRINE 0.25% 1:200,000 30 ML VIAL ONE (10:00)
--- NOTE | 2025-05-19 10:27 | Post Operative Brief Note ---
PG Immediate Post Op with CF Date of Surgery May 19, 2025 Pre & Post Diagnosis Operation Date: 05/19/25 10:00 Pre-Op Diagnosis: Acute cholecystitis Post-Op Diagnosis: Acute cholecystitis I identified the patient and participated in the time-out.: Yes Procedure Operation Date: 05/19/25 10:00 Actual Procedures p Laparoscopic Cholecystectomy(Not Applicable) - Hong Goodman DO Surgeon Hong Goodman DO Business Improvement Manager Ayala Leon PA-C Estimated Blood Loss 5 Findings See Below Dilated edematous gallbladder consistent with acute cholecystitis Specimens Specimen Description: A. Gallbladder Anesthesia Type General Complications none Disposition Disposition: Recovery Room
--- NOTE | 2025-05-19 10:28 | Operative Report ---
PG Post Operative Report Pre & Post Diagnosis Operation Date: 05/19/25 10:00 Pre-Op Diagnosis: Acute cholecystitis Post-Op Diagnosis: Acute cholecystitis I identified the patient and participated in the time-out.: Yes Procedure Operation Date: 05/19/25 10:00 Actual Procedures p Laparoscopic Cholecystectomy(Not Applicable) - Hong Goodman DO Surgeon Hong Goodman DO Warehouse Puller Ayala Leon PA-C Estimated Blood Loss 5 Findings See Below Dilated edematous gallbladder consistent with acute cholecystitis Fluids see anesthesia record Specimens Gallbladder to pathology Drains None Anesthesia Type General Complications none Disposition Disposition: Recovery Room Indications 30-year-old female with acute cholecystitis Description of Procedure The patient was brought to the operating room and placed in the supine position with both arms extended. At this time she underwent general endotracheal anesthesia without any problems. She was given appropriate pre-operative antibiotics. Her abdomen prepped and draped in the usual sterile fashion. A timeout was called, the procedure was verified as Laparoscopic cholecystectomy, possible open, possible intra-operative cholangiogram. Surgical, nursing and anesthesia teams agreed and the procedure was begun. After injection of 0.25% Marcaine with epinephrine, a supraumbilical vertical incision was made and carried down to the fascia using S-retractors. The abdominal wall was then elevated with towel clamps and abdomen entered using the Veress needle confirming position using the saline drop test. Pneumoperitoneum was established. 5mm trocar was placed. Laparoscope was introduced. No injury from entry into the abdomen was visualized after inspection of the abdomen. Three further ports were placed under direct visualization. One 11mm in the subxiphoid region and two 5mm in the RUQ. At this time the abdomen was inspected and the gallbladder identified. The gallbladder fundus was grasped and retracted cephalad. Omental adhesions to the gallbladder were lysed using sharp and blunt dissection. The gallbladder infundibulum was then grasped and retracted laterally. The gallbladder itself was dilated and edematous consistent with acute cholecystitis. The cystic duct and cystic artery were then identified and skeletonized. The critical view of safety was obtained. They were both then clipped twice proximally and once distally and then divided using scissors. The gallbladder was then taken off of the liver bed using electrocautery and placed in an endocatch bag and removed from the subxiphoid port. The liver bed was then inspected and no bile leak or bleeding was evide nt. The subxiphoid port was then closed using 0-Vicryl using the suture passer. The trocars were then removed under direct visualization and no bleeding was present. Abdomen was desufflated. The skin was then closed using 4-0 Monocryl in a subcuticular fashion. Surgical glue was applied. Needle and sponge counts were correct x 2. At this time the patient was awoken from anesthesia and extub ated having remained stable throughout the entire case. The patient was then transported to PACU in stable condition. The physician social worker assistant was present and scrubbed for the entire case. She was essential in positioning, prepping and draping the patient, driving the laparoscope, retraction and exposure, closure of the incisions and placement of the dressings. I attest to the content of the Intraoperative Record and any orders documented therein. Any exceptions are noted below.
--- NOTE | 2025-05-19 11:20 | Anesthesiology Progress Note ---
Date of Service May 19, 2025 Anesthesia Post Procedure Vital Signs Vital Signs: Temp Pulse Pulse Pulse Resp BP BP 05/19/25 11:10 74 16 05/19/25 11:00 83 16 05/19/25 10:50 81 16 05/19/25 10:43 36.3 C L 99 H 23 05/19/25 08:50 77 20 142/77 H 05/19/25 08:47 61 05/19/25 07:42 64 15 05/19/25 07:36 76 13 05/19/25 07:00 164/90 H 05/19/25 07:00 73 13 05/19/25 06:45 83 17 05/19/25 06:30 73 18 151/87 H 05/19/25 06:00 75 15 153/90 H 05/19/25 05:51 80 05/19/25 05:42 72 05/19/25 05:33 68 140/80 05/19/25 05:27 74 150/86 H 05/19/25 04:30 83 22 119/72 05/19/25 04:15 84 18 124/76 05/19/25 04:00 83 18 127/76 05/19/25 03:37 86 05/19/25 03:36 36.9 C 85 18 130/81 BP Pulse Ox O2 Del Method O2 Flow Rate 05/19/25 11:10 129/76 100 Room Air 05/19/25 11:00 124/79 100 Nasal Cannula 2 05/19/25 10:50 128/74 99 Nasal Cannula 4 05/19/25 10:43 124/72 98 Nasal Cannula 6 05/19/25 08:50 98 05/19/25 08:47 05/19/25 07:42 05/19/25 07:36 05/19/25 07:00 05/19/25 07:00 98 05/19/25 06:45 95 05/19/25 06:30 95 Room Air 05/19/25 06:00 93 Room Air 05/19/25 05:51 96 Room Air 05/19/25 05:42 94 Room Air 05/19/25 05:33 94 Room Air 05/19/25 05:27 96 Room Air 05/19/25 04:30 95 Room Air 05/19/25 04:15 96 Room Air 09/07/25 04:00 96 Room Air 05/19/25 03:37 05/19/25 03:36 99 Room Air Pain Intensity Right Lower Abdomen: Pain Intensity: 10 Transfer of Care Handoff Completed per policy Notes Mental Status: alert / awake / arousable Patient Amnestic to Procedure: Yes Nausea / Vomiting: adequately controlled Pain: adequately controlled Airway Patency, RR, SpO2: stable & adequate BP & HR: stable & adequate Hydration State: stable & adequate Anesthetic Complications: no major complications apparent
[2025-05-19] MEDS ORDERED: MoRPHine SULFATE 2 MG/ML CARP IV PRN (12:52)
[2025-05-19] MEDS: LACTATED RINGER'S 1,000 ML IV SCH (12:57)
[2025-05-19] MEDS: MoRPHine SULFATE 2 MG/ML CARP IV PRN (15:03)
[2025-05-19] MEDS: ESCITALOPRAM OXALATE 20 MG TAB PO SCH (21:18)
[2025-05-19] MEDS: lamoTRIgine 100 MG TAB PO SCH (21:18)
[2025-05-20] MEDS: PROMETHAZINE 12.5 MG/50.5 ML BAG IV PRN (02:06)
[2025-05-20 07:23] LABS: Hematocrit (blood only) 32.1 % (37.0-47.0); Hemoglobin 10.1 g/dl (12.0-16.0); Immature Granulocytes # (auto) 0.05 K/uL (0.01-0.20); Immature Granulocytes % (auto) 0.6 %; Mean Corpuscular Hemoglobin 25.2 pg (25.0-34.0); Mean Corpuscular Volume 80.0 fL (80.0-100.0); Platelet Count 273 K/uL (130-400); RDW Standard Deviation 63.7 fL (36.4-46.3); Red Blood Count 4.01 M/uL (4.20-5.40); White Blood Count 9.03 K/ul (4.8-10.8)
--- NOTE | 2025-05-20 07:39 | Surgery Progress Note ---
Date of Service May 20, 2025 Assessment & Plan (1) Acute cholecystitis: Plan: Patient is POD#1 s/p lap cholecystectomy with Dr. Goodman -Patient overall doing well, tolerating diet, and pain controlled -VSS and patient afebrile -LFTs this morning are elevated (Tbili 2.3, AST 758, ALT 1149). Will plan for MRCP today, pending results at this time Admission and Anticipated Discharge Date Admission Date: May 19, 2025 Supervising Physician Co-Signing Physician Notes Patient seen and examined Postoperative day 1 laparoscopic cholecystectomy for acute cholecystitis Her LFTs are bumped this morning, we will proceed with an MRCP and GI consult Follow-up the MRCP results and if she has choledocholithiasis, she would need an ERCP Subjective Patient seen and evaluated this morning, states she is feeling well but overall tired Tolerating diet post-op Pain well controlled at this time LFTs unfortunately are elevated today (Tbili 2.3, AST 758, ALT 1149) VSS Physical Exam Constitutional: WD/WN, vitals as above Respiratory: normal respiratory effort, lungs clear to auscultation Cardiovascular: Rate/Rhythm: regular rate Gastrointestinal (Abdomen): Abdomen soft, nondistended, +appropriate TTP over surgical sites. Incisions are c/d/i with Dermabond in place, no overlying signs of infection Skin: no rashes, warm and dry Results & Data Vital Signs (Past 12 Hours) Vital Signs Temp Pulse Resp BP Pulse Ox O2 Del Method 05/20/25 02:47 36.5 C 68 18 132/83 96 Room Air 05/19/25 23:04 36.9 C 62 18 155/93 H 96 Room Air PG Care Time/CCT Total # of Minutes Spent Total Time Spent with Patient: Total time spent is greater than 50% in coordination of care (as documented) at patient's floor/unit and/or counseling patient: Coding [place] [address] Post Operative Follow-Up Patient Type Established Medical Decision Making Straight Forward Diagnoses Acute cholecystitis K81.0
[2025-05-20 07:45] LABS: Alanine Aminotransferase 1149.0 U/L (7-52); Alkaline Phosphatase 139.0 U/L (34-104); Anion Gap 6.0 (3-11); Bilirubin,Total 2.3 mg/dl (0.2-1.0); Blood Urea Nitrogen 6.0 mg/dl (6-23); Calcium 8.5 mg/dl (8.6-10.3); Carbon Dioxide 27.0 mmol/L (21-32); Chloride 106.0 mmol/L (98-107); Creatinine Clr Calc Pharmacy 221.3 ml/min; Glucose 135.0 mg/dl (70-99(Fasting)); Potassium 3.8 mmol/L (3.5-5.1); Sodium 139.0 mmol/L (136-145); Total Protein 6.1 gm/dl (6.0-8.3)
[2025-05-20 08:09] LABS: Anisocytosis Present; Polychromasia 1+
[2025-05-20] MEDS: DEXTROAMPHETAMINE/AMPHETAMINE ER 10 MG CAP PO SCH (08:15)
--- NOTE | 2025-05-20 10:38 | Gastrointestinal Consultation ---
Date of Consultation May 20, 2025 Assessment & Plan (1) Elevated LFTs: 30 year old female POD#1 s/p lap cholecystectomy with Dr. Goodman for acute cholecystitis - GI was asked to evaluate for bump in liver enzymes - Tb 2.3, AST 758, ALT 1149, ALKP 139, Lipase 44. She is afebrile, w/o leukocytosis and is pain free. NPO for MRCP. If positive, recommend transfer for ERCP. If negative, continue to trend LFTs. If remain elevated or any s/s of cholangitis recommend transfer to a center w/ biliary coverage. I spent a total of 60 minutes on the date of service in review of patient's record, and previously obtained information in person and appropriate medical visit, discussion and education of plan, with patient and/or caregiver, placing orders for tests/referral/procedures as medically necessary and documentation of pertinent clinical information in patient's medical records for their visit today. Supervising Physician Co-Signing Physician Notes I personally saw and examined the patient. I have reviewed the chart and agree with the documentation provided by the FINISH PHOTOGRAPHER including discussion about the assessment, treatment and plan. Briefly, 30 year old female POD#1 s/p lap cholecystectomy with Dr. Goodman for acute cholecystitis - GI was asked to evaluate for bump in liver enzymes - Tb 2.3, AST 758, ALT 1149, ALKP 139, Lipase 44. She is afebrile, w/o leukocytosis and is pain free. MRCP reviewed by me personally and showed a abrupt cut off in the distal CBD with likely layering sludge and stones present. She is having mild-moderate abdominal pain. She will need an ERCP. Patient will need to be transferred to a facility where it can be done. She can have a full liquid diet till then. N.p.o. after midnight tonight. I explained this to the patient and her family. History of Present Illness Reason for Consultation: s/p lap leigh ann, elevated LFTs Requesting Physician: Hong Goodman DO Attending Physician: Hong Goodman DO History of Present Illness 30 year old female POD#1 s/p lap cholecystectomy with Dr. Goodman for acute cholecystitis - GI was asked to evaluate for bump in liver enzymes Tb 0.3 --> 2.3 DB 1.5 AST 126 --> 758 ALT 95 --> 1149 ALKP 87 --> 139 Lipase 44 ABD US 2024: The gall bladder appears distended with mobile calculi and sludge and reported positive Mcmillan sign, these criteria raise the concern for acute calcular cholecystitis, clinical and lab correlation needed Dilated common bile duct, correlation with serum bilirubin advised, MRCP study advised if clinically needed CTAP 2024: Uncomplicated cholelithiasis. Allergies Allergy/AdvReac Type Severity Reaction Status Date / Time No Known Allergies Allergy Verified 05/19/25 08:26 Home Medications Medication Instructions Recorded Confirmed Type blood-glucose sensor (FreeStyle #2 ea 10/26/24 11/29/24 Rx Ace 3 Plus Sensor device) pen needle, diabetic 32 gauge x #150 ea 10/26/24 11/29/24 Rx 5/32" (BD Ultra-Fine Chrystal Pen Needle) dextroamphetamine-amphetamine ER 30 mg PO QAM 05/19/25 05/19/25 History 30 mg 24hr capsule,extend release (Adderall XR) escitalopram oxalate 20 mg tablet 20 mg PO HS 05/19/25 05/19/25 History (Lexapro) lamotrigine 100 mg tablet 100 mg PO HS 05/19/25 05/19/25 History oxycodone 5 mg tablet 5 mg PO Q6H PRN pain #12 tabs 05/20/25 Rx Patient History Medical History Insulin controlled gestational diabetes mellitus (GDM) during LGSIL on Pap smear of cervix High 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 Depression LGSIL on Pap smear of cervix Repeat pap smear 6 weeks pp depression After first child; denied needing medication Gestational diabetes On insulin Depression Surgical History Status post surgery labiaplasty [place] teeth extracted Family History Other Adopted Social History Smoking Status: Current every day smoker Tobacco Type: Cigarettes Second Hand Exposure: No; Do You Dip or Chew Tobacco: No; Hx Alcohol Use: No Hx Substance Use: Yes Preferred Language: Tongan Communication Ability: Effective Gun Stock Checker Required: No Beliefs That Will Affect Care: None marital status: marital status details: Roque Ibrahim (29) [phone] Current Living Situation: Spouse and Family Current Living Situation Comment: Lives with , children,dog, cat-fob changing litter current occupational status: unemployed current occupation: homemaker Other Information That Helps Us Care for You: No Feels Safe at Home: Yes Safety Concerns: Feels Safe At This Time Assistive Devices: None Results & Data Vital Signs (Past 12 Hours) Vital Signs Temp Pulse Resp BP Pulse Ox O2 Del Method 05/20/25 07:56 97.9 F 95 H 16 139/85 98 Room Air 05/20/25 02:47 97.7 F 68 18 132/83 96 Room Air 05/19/25 23:04 98.4 F 62 18 155/93 H 96 Room Air Laboratory Results 05/20/25 Range/Units 06:13 WBC 9.03 (4.8-10.8) K/ul RBC 4.01 L (4.20-5.40) M/uL Hgb 10.1 L (12.0-16.0) g/dl Hct 32.1 L (37.0-47.0) % MCV 80.0 (80.0-100.0) fL MCH 25.2 (25.0-34.0) pg MCHC 31.5 L (32.0-36.0) g/dL RDW Std Deviation 63.7 H (36.4-46.3) fL RDW Coeff of Herbert 22.2 H (11.5-14.5) % Plt Count 273 (130-400) K/uL MPV 9.8 (9.4-12.4) fL Immature Gran % (Auto) 0.6 % Neut % (Auto) 84.2 % Lymph % (Auto) 11.1 % Iron % (Auto) 3.7 % Eos % (Auto) 0.2 % Baso % (Auto) 0.2 % Neut # (Auto) 7.61 H (1.40-6.50) K/uL Lymph # (Auto) 1.00 L (1.20-3.40) K/uL Iron # (Auto) 0.33 (0.11-0.59) K/uL Eos # (Auto) 0.02 (0.00-0.50) K/uL Baso # (Auto) 0.02 (0.00-0.20) K/uL Immature Gran # (Auto) 0.05 (0.01-0.20) K/uL Polychromasia 1+ Anisocytosis Present Sodium 139 (136-145) mmol/L Potassium 3.8 (3.5-5.1) mmol/L Chloride 106 (98-107) mmol/L Carbon Dioxide 27 (21-32) mmol/L Anion Gap 6 (3-11) BUN 6 (6-23) mg/dl Creatinine 0.39 L (0.6-1.2) mg/dl Est Cr Clr Drug Dosing 221.3 ml/min eGFR 139.02 BUN/Creatinine Ratio 15.4 (10-20) Glucose 135 H (70-99(Fasting)) mg/dl Calcium 8.5 L (8.6-10.3) mg/dl Total Bilirubin 2.3 H D (0.2-1.0) mg/dl Direct Bilirubin 1.5 H (0-0.2) mg/dl AST 758 H (13-39) U/L ALT 1149 H (7-52) U/L Alkaline Phosphatase 139 H (34-104) U/L Total Protein 6.1 (6.0-8.3) gm/dl Albumin 3.5 (3.4-5.0) gm/dl PG Care Time/CCT Total # of Minutes Spent Total Time Spent with Patient: Total time spent is greater than 50% in coordination of care (as documented) at patient's floor/unit and/or counseling patient: Coding Level of Care Code 40845 INT INP/OBS CARE 2/55MIN Diagnoses Elevated LFTs R79.89
[2025-05-20 12:12] VITALS: RESP 18
--- NOTE | 2025-05-20 13:38 | Magnetic Resonance Report ---
MR MRCP CLINICAL HISTORY: post-op , elevated LFTs, eval for choledocho COMPARISON STUDY: Ultrasound and CT of 05/19/2025 FINDINGS: There is motion artifact. There is interval cholecystectomy with mild postoperative strandi ng at the gallbladder fossa with no significant fluid collection or abscess seen. Common bile duct is mildly dilated measuring 7 mm maximal diameter. There is abrupt blunt cut off of the distal common b ile duct. No other filling defects seen in the common bile duct. No ascites. IMPRESSION: Abrupt cut off of the distal common bile duct with mild common ductal dilatation. Differ ential diagnosis includes distal common bile duct stone, layering tiny stones or sludge in the distan t common bile duct, or edema at the ampulla. ACT 112: Negative or not required by law. Electronically signed by: Freeman Henry M.D. 05/20/2025 1:37 PM
[2025-05-20 15:25] VITALS: BP 154/101; PULSE 75; TEMP 98.1; O2SAT 96
--- NOTE | 2025-05-20 15:47 | Discharge Summary ---
Date of Service May 20, 2025 Admission HPI Per Admitting Provider This is a 30-year-old female who presented to the ER with right upper quadrant sharp pain that started around 230 this morning. She has not eaten or drank anything since 10 PM. She has never had this type of pain in the past. Denies any fevers or chills. She had some nausea without emesis. Only abdominal surgery is a and tubal ligation. Denies any scleral icterus, jaundice, tea colored urine or acholic stools. Admission Exam Per Admitting Provider Physical Exam Constitutional: WD/WN, vitals as above Eyes: PERRL, conjunctivae normal, anicteric sclerae ENMT: external ear and nose normal, oropharynx normal Neck: trachea midline, no thyromegaly Respiratory: normal respiratory effort, lungs clear to auscultation Cardiovascular: RRR, no murmur, no edema Gastrointestinal (Abdomen): Inspection/Auscultation: abdomen normal to inspection; abdomen not distended Percussion/Palpation: + abdomen tender (Right upper quadrant), + guarding and abdomen soft Positive Mcmillan's Musculoskeletal: no cyanosis or clubbing, extremities motor strength 5/5 Skin: no rashes, warm and dry Neurologic: PERRL, EOMI, accommodation nl, no face palsy, no dysarthria Psychiatric: A+Ox3, euthymic affect Principal Diagnosis Acute cholecystitis Discharge Exam Physical Exam Constitutional: WD/WN, vitals as above Respiratory: normal respiratory effort, lungs clear to auscultation Cardiovascular: Rate/Rhythm: regular rate Gastrointestinal (Abdomen): Abdomen soft, nondistended, +appropriate TTP over surgical sites. Incisions are c/d/i with Dermabond in place, no overlying signs of infection Skin: no rashes, warm and dry Discharge Data Allergies Allergy/AdvReac Type Severity Reaction Status Date / Time No Known Allergies Allergy Verified 05/19/25 08:26 Consultations 05/19/25 07:09 Consult General Surgery Stat 05/20/25 10:10 Consult Gastroenterology Routine Procedures Performed Operation Date: 05/19/25 10:00 Actual Procedures p Laparoscopic Cholecystectomy(Not Applicable) - Hong Goodman, Ordered Studies 05/19/25 03:37 CT abd pelvis wo con Stat 05/19/25 04:17 US gallbladder Stat 05/20/25 07:47 MRI MRCP [MR MRCP] Urgent Hospital Course (1) Acute cholecystitis: Patient was admitted to the surgical service for findings of acute cholecystitis. The patient was taken to the operating theater on 05/19/2025 for laparoscopic cholecystectomy. She had no intraoperative complications reported (please see separate procedure note for full operative details). Post- operatively the patient returned to medical/surgical floor and was able to tolerate a diet without any issues of worsening abdominal pain, nausea or vomiting. The patient's pain was well controlled and she was able to ambulate without any difficulty. The patient did receive pre-operative antibiotic coverage however did not require additional antibiotics post-operatively. On POD#1 the patient was found to have elevated LFTs (Tbili 2.3, AST 758, ALT 1149). Due to this, an MRCP was performed with findings as below: IMPRESSION: Abrupt cut off of the distal common bile duct with mild common ductal dilatation. Differential diagnosis includes distal common bile duct stone, layering tiny stones or sludge in the distant common bile duct, or edema at the ampulla. The GI team was consulted at our facility who evaluated the patient as well. Unfortunately due to not having ERCP capabilities at our facility, the patient was transferred to outside hospital for further GI evaluation and ERCP. The patient was medically stable for S transfer to [facility] (accepting doctor Dr. Katarina Collins). (2) Elevated LFTs: Total Time Total Time Spent Total Time Spent (In Minutes): >30 minutes Discharge Plan Discharge Items Patient Disposition: Transfer Acute Care Hospital Reason For Visit: S/P LAPAROSCOPIC CHOLECYSTECTOMY Discharge Diagnosis: acute cholecystitis choledocholithiasis Condition on Discharge: Fair Activity: Per Instructions section Bathing Comment: may shower; do NOT soak in bath tubs, hot tubs, pools, or beaches x2 weeks Non-emergency contact: Primary Care Provider and Surgeon Call non-emergency contact if: your pain is not controlled, your temperature is above 101.5, your wound has increased redness and your wound has increased drainage Follow-up/Referrals: Hong Goodman DO [Physician] - (follow up in 2 weeks for your post-op check up ) Karina Kincaid PA-C [Primary Care Provider] - Diet: Regular Addtl Attending Provider Instructions: SPECIAL CARE INSTRUCTIONS: * You have skin glue called Dermabond over your incisions. You may shower with this on, do NOT pick at this, it will tend to fall off within the next 7-10 days. * You may shower 05/20 . NO soaking in bath tubs, hot tubs, or pools or beaches for 2 weeks * No lifting greater than 10lbs. No exercise until cleared by surgeon. Light walking is accepted. * No driving while taking narcotic pain medication * No drinking alcohol while taking narcotic pain medication * May use Ibuprofen/Tylenol over the counter for pain as tolerated. Do not exceed 3grams of Tylenol per 24 hours * Expect some swelling and bruising. * Diet - resume your regular diet CALL YOUR DOCTOR IF: * Temperature above 101 degrees, nausea/vomiting, fever/chills * Pain not relieved by pain medicine ordered * There is increased drainage or redness from any incision * You have any unanswered questions or concerns [phone]. FOLLOW UP VISIT: If not already scheduled, please call the office for a follow-up visit. Office Pending Studies at Discharge: Yes Studies:: surgical pathology Stand-Alone Forms: [facility] ColorModules, Smoking Cessation Skilled Items Patient informed of condition?: Yes DNR: No Discharge Level of Care: Other Communicable Disease: No Discharge Prognosis: Stable Lines: Peripheral IV Urinary Catheter: No Medications and DC Order Prescriptions: New oxycodone 5 mg tablet 5 mg PO Q6H PRN (Reason: pain) Qty: 12 0RF Rx Instructions: Initial therapy post surgery Continued (DME) FreeStyle Ace 3 Plus Sensor Device See Rx Instructions .Route Qty: 2 8RF Rx Instructions: As directed to change sensor every 15 days (DME) pen needle, diabetic [BD Ultra-Fine Chrystal Pen Needle] 32 gauge x 5/32" needle See Rx Instructions miscellaneous .MEDSUPPLY Qty: 150 8RF Rx Instructions: As directed to use with insulin pens 4 times a day dextroamphetamine-amphetamine [Adderall XR] 30 mg capsule,extended release 24hr 30 mg PO QAM lamotrigine 100 mg tablet 100 mg PO HS escitalopram oxalate [Lexapro] 20 mg tablet 20 mg PO HS Admission Data Admit Date/Time: 05/19/25 10:45 Attending Provider: Hong Goodman Admit Provider: Hong Goodman Primary Care Provider: Karina Kincaid Other Providers: Hong Goodman; Viridiana Chaparro; Clement Boles; Magda Durham; Jessenia Stout; Marifer Herrera; Meera Booker; Cristian Clayton; Pilar Pitts; Silvia Pinzon; Madison Avalos; Colleen Ramírez; Yoselin Jose; Nadeen Pressley; Kirsten Lopez; Pattie Parr; Enrique Wade; Amos Garcia; Maryellen Bolden; Mustapha Smith Jr; Saleem Still; Hermes Evans; Lionel Davdi; Kalen Gillette; Halie Yoon; Golden Douglas I; Juliana Zavala; Jordan White; Danilo Roldan; Matt Chávez; Alan Castelan C[place] [address] INP/OBS DISCH >30 MIN Patient Type Established History Problem Focused Exam Problem Focused Medical Decision Making Straight Forward Diagnoses Acute cholecystitis K81.0 Elevated LFTs R79.89
== END 2025-05-20 17:45 | disposition short-term general hospital (02) ==
LOC: ED 03:30 → 3E 03:30